=== PATIENT | female | born 1945 | race Caucasian/White ===

== ENCOUNTER 2016-07-03 08:59 | Emergency (ER) | payer BC ==
[~2016-07-03] VITALS: Ht 167.6 cm; Wt 61.0 kg
[~2016-07-03 08:59] MED LIST: ALBU18HF INH; ALBU8.5H3 INH; AMOX-291 PO; AZIT500T4 PO; BENZ200C40 PO; BUDE0.5A INH; DOXY100T PO; FAMO-79 PO; FLUT1DIS3 INH; GUAI600T22 PO; HYDR-3138 PO; HYDR473S55 PO; IBUP200C8 PO; IPRA3AMP NEB; LEVO750T26 PO; METH4TAB2 PO; NAPR500T PO; OTC VITAMINS; PRED20TA PO; TIOT18CA INH; TRAM100T13 PO
[2016-07-03 09:30] VITALS: BP 122/60
[2016-07-03] MEDS ORDERED: OXYcodone/APAP 5/325MG TABLET ONE (09:43)
[2016-07-03] MEDS ORDERED: OXYcodone/APAP 5/325MG TABLET PO ONE (10:00)
[2016-07-04] MEDS ORDERED: GUAI1TAB21 PO (16:27)
[2016-07-04] MEDS ORDERED: OXYC-302 PO (16:27)
== END 2016-07-03 10:43 | disposition home or self-care (01) ==
LOC: ED 10:38
DX: M19.012 Primary osteoarthritis, left shoulder (principal); J44.9 Chronic obstructive pulmonary disease, unspecified; J45.909 Unspecified asthma, uncomplicated; Z88.1 Allergy status to other antibiotic agents; Z88.8 Allergy status to other drugs, medicaments and biological substances; Z87.891 Personal history of nicotine dependence
CPT/HCPCS: 71020; 93005; 99284

== ENCOUNTER 2016-07-04 16:00 | Emergency (ER) | payer BC ==
[~2016-07-04] VITALS: Ht 167.6 cm; Wt 65.2 kg
[2016-07-04] MEDS ORDERED: GUAI1TAB21 PO (16:27)
[2016-07-04] MEDS ORDERED: OXYC-302 PO (16:27)
[2016-07-04] MEDS ORDERED: SODIUM CHLORIDE 0.9% 1,000 ML IV ONE (16:49)
[2016-07-04] MEDS ORDERED: ALBUTEROL/IPRATROPIUM 2.5MG/0.5MG, 3 ML NPPB ONE (17:00)
[2016-07-04] MEDS ORDERED: CEFTRIAXONE PMX 1GM/50ML 50 ML IVPB ONE (17:00)
[2016-07-04] MEDS ORDERED: CEFTRIAXONE PMX 1GM/50ML 50 ML ONE (17:20)
[2016-07-04 17:31] LABS: HEMOGLOBIN 14.6 g/dL (11.7-16.4)
[2016-07-04 17:40] LABS: BLOOD UREA NITROGEN 18 mg/dL (7-18)
[2016-07-04 18:33] VITALS: BP 124/63
== END 2016-07-04 18:44 | disposition home or self-care (01) ==
LOC: ED 18:15
DX: J01.00 Acute maxillary sinusitis, unspecified (principal); J44.1 Chronic obstructive pulmonary disease with (acute) exacerbation; K21.9 Gastro-esophageal reflux disease without esophagitis; M19.90 Unspecified osteoarthritis, unspecified site; J45.909 Unspecified asthma, uncomplicated; Z87.01 Personal history of pneumonia (recurrent); Z88.1 Allergy status to other antibiotic agents; Z87.891 Personal history of nicotine dependence; Z88.8 Allergy status to other drugs, medicaments and biological substances
CPT/HCPCS: 36415; 71010; 80048; 82040; 85025; 93005; 94640; 96365; 99285; J0696; J7030; J7512; J7620

== ENCOUNTER 2016-07-18 11:35 | Emergency (ER) | payer BC ==
[~2016-07-18] VITALS: Ht 170.2 cm; Wt 64.8 kg
[~2016-07-18 11:35] MED LIST changes: +GUAI1TAB21 PO; +OXYC-302 PO
[2016-07-18 11:48] VITALS: BP 117/77
== END 2016-07-18 12:35 | disposition home or self-care (01) ==
LOC: ED 12:29
DX: M19.012 Primary osteoarthritis, left shoulder (principal); M79.622 Pain in left upper arm; K21.9 Gastro-esophageal reflux disease without esophagitis; J44.9 Chronic obstructive pulmonary disease, unspecified; Z87.01 Personal history of pneumonia (recurrent); Z98.890 Other specified postprocedural states
CPT/HCPCS: 99283

== ENCOUNTER 2016-07-20 10:58 | Inpatient (IN) | payer MEDICARE, BC ==
[~2016-07-20] VITALS: Ht 170.2 cm; Wt 70.0 kg
[2016-07-20] MEDS ORDERED: ASPIRIN 81 MG TABLET CHEW PO ONE (12:30)
[2016-07-20] MEDS ORDERED: ALBUTEROL/IPRATROPIUM 2.5MG/0.5MG, 3 ML NPPB ONE (12:30)
[2016-07-20] MEDS ORDERED: SODIUM CHLORIDE FLUSH 10ML SYR IVF ONE (12:30)
[2016-07-20] MEDS ORDERED: ALBUTEROL/IPRATROPIUM 2.5MG/0.5MG, 3 ML ONE ×2 (12:36→14:41)
[2016-07-20] MEDS ORDERED: ASPIRIN 81 MG TABLET CHEW ONE (12:48)
[2016-07-20] MEDS ORDERED: CEFTRIAXONE PMX 1GM/50ML 50 ML IVPB ONE (13:00)
[2016-07-20] MEDS ORDERED: AZITHROMYCIN 500 MG in SODIUM CHLORIDE 0.9% 250 ML IVPB ONE (13:00)
[2016-07-20] MEDS ORDERED: CEFTRIAXONE PMX 1GM/50ML 50 ML ONE (13:03)
[2016-07-20 13:36] LABS: BLOOD UREA NITROGEN 16 mg/dL (7-18)
[2016-07-20 13:42] LABS: ASPARTATE AMINO TRANSFERASE 14 U/L (15-37); IS PT STATUS REG ER OR PRE ER? YES
[2016-07-20] MEDS ORDERED: SODIUM CHLORIDE FLUSH 10ML SYR IVF PRN (14:00)
[2016-07-20] MEDS ORDERED: ALBUTEROL/IPRATROPIUM 2.5MG/0.5MG, 3 ML NEB ONE (15:00)
[2016-07-20] MEDS ORDERED: PSEU30TA PO (15:05)
[2016-07-20 15:54] VITALS: BP 112/69
[2016-07-20] MEDS ORDERED: HYDROcodone/APAP 5/325 TABLET PO PRN (17:00)
[2016-07-20] MEDS ORDERED: ONDANSETRON ODT 4 MG PO PRN (17:00)
[2016-07-20] MEDS ORDERED: DOCUSATE 100 MG CAPSULE PO PRN (17:00)
[2016-07-20] MEDS ORDERED: ONDANSETRON 2MG/ML, 2ML IVP PRN (17:00)
[2016-07-20] MEDS ORDERED: ACETAMINOPHEN 325 MG TABLET PO PRN (17:00)
[2016-07-20] MEDS ORDERED: GUAIFENESIN/DM 200-20MG, 10ML UDC PO PRN (17:00)
[2016-07-20] MEDS ORDERED: TRAZODONE 50MG TABLET PO PRN (17:00)
[2016-07-20] MEDS: SODIUM CHLORIDE 0.9% 1,000 ML IV SCH (17:30)
[2016-07-20] MEDS: ENOXAPARIN 40 MG/0.4 ML SQ SCH ×2 (17:30→18:16)
[2016-07-20] MEDS ORDERED: IPRATROPIUM 0.5 MG/2.5 ML INHA HHN SCH (17:30)
[2016-07-20] MEDS: OXYcodone/APAP 5/325MG TABLET PO SCH (18:17)
[2016-07-20] MEDS: CEFTRIAXONE PMX 1GM/50ML 50 ML IV SCH (18:17)
[2016-07-20] MEDS: ALBUTEROL/IPRATROPIUM 2.5MG/0.5MG, 3 ML NPPB SCH (18:29)
[2016-07-20] MEDS ORDERED: [UNRECOGNIZED DRUG - OTHER] PO PRN (20:00)
[2016-07-20] MEDS ORDERED: MAGNESIUM OXIDE 400 MG TABLET PO ONE (20:30)
[2016-07-20 20:40] VITALS: BP 128/70
[2016-07-20] MEDS ORDERED: TIOTROPIUM BROMIDE INH SCH (21:00)
[2016-07-20] MEDS ORDERED: TEMPLATE NON-FORMULARY MED. (Albuterol Sulfate (Ventolin Hfa) 2 PUFF) INH SCH (21:00)
[2016-07-20] MEDS: AZITHROMYCIN 500 MG in SODIUM CHLORIDE 0.9% 250 ML IV SCH (22:01)
[2016-07-20] MEDS: SODIUM CHLORIDE FLUSH 10ML SYR IVF SCH (22:02)
[2016-07-20] MEDS: GUAIFENESIN ER 600 MG TABLET PO SCH (22:02)
[2016-07-21] MEDS: OXYcodone/APAP 5/325MG TABLET PO SCH ×4 (00:05→17:19)
[2016-07-21] MEDS: ALBUTEROL SULFATE 2.5 MG/3 ML HHN PRN (00:30)
[2016-07-21 02:17] VITALS: BP 112/60
[2016-07-21] MEDS: SODIUM CHLORIDE 0.9% 1,000 ML IV SCH (03:46)
[2016-07-21 06:17] LABS: BLOOD UREA NITROGEN 20 mg/dL (7-18)
[2016-07-21 06:56] VITALS: BP 120/70
[2016-07-21] MEDS: ALBUTEROL/IPRATROPIUM 2.5MG/0.5MG, 3 ML NPPB SCH ×5 (06:57→23:45)
[2016-07-21] MEDS: SODIUM CHLORIDE FLUSH 10ML SYR IVF SCH ×2 (08:26→20:34)
[2016-07-21] MEDS: GUAIFENESIN ER 600 MG TABLET PO SCH ×2 (08:26→20:34)
[2016-07-21] MEDS: PSEUDOEPHEDRINE 30 MG TABLET PO SCH (08:27)
[2016-07-21 12:24] VITALS: BP 108/58
[2016-07-21] MEDS: CEFTRIAXONE PMX 1GM/50ML 50 ML IV SCH (17:19)
[2016-07-21] MEDS: ENOXAPARIN 40 MG/0.4 ML SQ SCH ×2 (17:19→17:20)
[2016-07-21] MEDS: AZITHROMYCIN 500 MG in SODIUM CHLORIDE 0.9% 250 ML IV SCH (18:43)
[2016-07-21 19:10] VITALS: BP 125/70
[2016-07-21] MEDS: CALCIUM CARBONATE 500 MG TAB.CHEW PO PRN (20:34)
[2016-07-22 01:15] VITALS: BP 110/68
[2016-07-22] MEDS: ALBUTEROL/IPRATROPIUM 2.5MG/0.5MG, 3 ML NPPB SCH ×4 (04:59→19:33)
[2016-07-22] MEDS: OXYcodone/APAP 5/325MG TABLET PO SCH ×4 (05:34→17:35)
[2016-07-22 06:54] VITALS: BP 117/68
[2016-07-22] MEDS: GUAIFENESIN ER 600 MG TABLET PO SCH ×2 (08:58→20:46)
[2016-07-22] MEDS: PSEUDOEPHEDRINE 30 MG TABLET PO SCH (08:58)
[2016-07-22] MEDS: SODIUM CHLORIDE FLUSH 10ML SYR IVF SCH ×2 (08:59→20:46)
[2016-07-22] MEDS: SODIUM CHLORIDE 0.9% 1,000 ML IV SCH ×2 (13:00→23:00)
[2016-07-22 14:08] VITALS: BP 117/68
[2016-07-22 14:27] VITALS: BP 124/71
[2016-07-22] MEDS: methylPREDNISolone SOD SUCC 125 MG/2 ML IVPush SCH (17:34)
[2016-07-22] MEDS: CEFTRIAXONE PMX 1GM/50ML 50 ML IV SCH (17:35)
[2016-07-22] MEDS: ENOXAPARIN 40 MG/0.4 ML SQ SCH (17:35)
[2016-07-22] MEDS: AZITHROMYCIN 500 MG in SODIUM CHLORIDE 0.9% 250 ML IV SCH (19:20)
[2016-07-22 20:25] VITALS: BP 127/73
[2016-07-23] MEDS: SODIUM CHLORIDE 0.9% 1,000 ML IV SCH ×2 (00:48→14:55)
[2016-07-23] MEDS: ALBUTEROL/IPRATROPIUM 2.5MG/0.5MG, 3 ML NPPB SCH ×6 (01:19→22:35)
[2016-07-23 02:02] VITALS: BP 150/79
[2016-07-23] MEDS: methylPREDNISolone SOD SUCC 125 MG/2 ML IVPush SCH ×2 (02:46→14:55)
[2016-07-23] MEDS: OXYcodone/APAP 5/325MG TABLET PO SCH ×4 (06:00→18:30)
[2016-07-23 07:40] VITALS: BP 131/86
[2016-07-23] MEDS: SODIUM CHLORIDE FLUSH 10ML SYR IVF SCH ×2 (08:00→21:00)
[2016-07-23] MEDS ORDERED: SINCALIDE (KINEVAC) 5 MCG ONE (08:51)
[2016-07-23] MEDS: GUAIFENESIN ER 600 MG TABLET PO SCH ×2 (09:00→21:00)
[2016-07-23] MEDS: PSEUDOEPHEDRINE 30 MG TABLET PO SCH (09:00)
[2016-07-23 13:30] VITALS: BP 67/86
[2016-07-23] MEDS: ENOXAPARIN 40 MG/0.4 ML SQ SCH ×2 (17:30→18:30)
[2016-07-23] MEDS ORDERED: CETIRIZINE 10 MG TABLET PO PRN (18:00)
[2016-07-23] MEDS: CEFTRIAXONE PMX 1GM/50ML 50 ML IV SCH (18:30)
[2016-07-23] MEDS: AZITHROMYCIN 500 MG in SODIUM CHLORIDE 0.9% 250 ML IV SCH (19:33)
[2016-07-23 20:36] VITALS: BP 125/63
[2016-07-24] MEDS: ALBUTEROL SULFATE 2.5 MG/3 ML HHN PRN (02:28)
[2016-07-24] MEDS: methylPREDNISolone SOD SUCC 125 MG/2 ML IVPush SCH ×2 (02:39→15:44)
[2016-07-24] MEDS: OXYcodone/APAP 5/325MG TABLET PO SCH ×4 (02:39→18:09)
[2016-07-24 02:45] VITALS: BP 148/77
[2016-07-24] MEDS: SODIUM CHLORIDE 0.9% 1,000 ML IV SCH ×2 (05:24→18:09)
[2016-07-24] MEDS: CALCIUM CARBONATE 500 MG TAB.CHEW PO PRN (05:35)
[2016-07-24 07:00] VITALS: BP 133/76
[2016-07-24] MEDS: ALBUTEROL/IPRATROPIUM 2.5MG/0.5MG, 3 ML NPPB SCH ×4 (07:00→20:00)
[2016-07-24] MEDS: GUAIFENESIN ER 600 MG TABLET PO SCH ×2 (10:49→20:11)
[2016-07-24] MEDS: PSEUDOEPHEDRINE 30 MG TABLET PO SCH (10:49)
[2016-07-24] MEDS: SODIUM CHLORIDE FLUSH 10ML SYR IVF SCH ×2 (10:49→20:11)
[2016-07-24 12:57] VITALS: BP 150/68
[2016-07-24] MEDS: ENOXAPARIN 40 MG/0.4 ML SQ SCH (15:47)
[2016-07-24] MEDS: CEFTRIAXONE PMX 1GM/50ML 50 ML IV SCH (18:09)
[2016-07-24 19:18] VITALS: BP 158/78
[2016-07-24] MEDS: AZITHROMYCIN 500 MG in SODIUM CHLORIDE 0.9% 250 ML IV SCH (20:11)
[2016-07-25 02:27] VITALS: BP 166/91
[2016-07-25] MEDS: methylPREDNISolone SOD SUCC 125 MG/2 ML IVPush SCH (03:42)
[2016-07-25] MEDS: OXYcodone/APAP 5/325MG TABLET PO SCH ×2 (05:40)
[2016-07-25] MEDS: ALBUTEROL/IPRATROPIUM 2.5MG/0.5MG, 3 ML NPPB SCH (06:13)
[2016-07-25 06:40] VITALS: BP 124/67
[2016-07-25] MEDS: GUAIFENESIN ER 600 MG TABLET PO SCH (08:29)
[2016-07-25] MEDS ORDERED: AZIT500T4 PO (08:40)
[2016-07-25] MEDS ORDERED: IPRA4AER INH (08:42)
[2016-07-25] MEDS ORDERED: PRED20TA PO (08:43)
[2016-07-25] MEDS: PSEUDOEPHEDRINE 30 MG TABLET PO SCH (09:00)
[2016-07-25] MEDS: SODIUM CHLORIDE FLUSH 10ML SYR IVF SCH (09:00)
== END 2016-07-25 12:04 | disposition home or self-care (01) | DRG 190 ==
LOC: ED 13:57 → EDIP 13:58 → ED 14:06 → 4EST 15:45
PROVIDERS: ADMIT Internal Medicine; ATTEND Family Medicine
DX: J44.0 Chronic obstructive pulmonary disease with (acute) lower respiratory infection (principal); J18.9 Pneumonia, unspecified organism; J44.1 Chronic obstructive pulmonary disease with (acute) exacerbation; J45.909 Unspecified asthma, uncomplicated; M19.012 Primary osteoarthritis, left shoulder; M48.02 Spinal stenosis, cervical region; M79.602 Pain in left arm; Z96.89 Presence of other specified functional implants; R00.0 Tachycardia, unspecified; Z88.2 Allergy status to sulfonamides; Z88.8 Allergy status to other drugs, medicaments and biological substances; Z87.891 Personal history of nicotine dependence; Z79.82 Long term (current) use of aspirin; Z87.01 Personal history of pneumonia (recurrent)
CPT/HCPCS: 36415; 71010; 71020; 72050; 76700; 78227; 80048; 80053; 82247; 82248; 83605; 83880; 84145; 84484; 85025; 85379; 87040; 93005; 94640; 96365; 96367; J0456; J0696; J1650; J7613; J7620; A9537; C9898; J2805; J2930; J7030; J7050; J7512

== ENCOUNTER → 2016-08-17 | Outpatient (CLI) | payer BC, MEDICARE ==
[~2016-08-17] MED LIST changes: -AZIT500T4 PO; +AZIT500T77 PO; +IPRA4AER INH; +PSEU30TA PO
== END | disposition home or self-care (01) ==
LOC: CFH 08:23
PROVIDERS: ATTEND Registered Nurse
DX: R10.11 Right upper quadrant pain (principal)
CPT/HCPCS: 76700

== ENCOUNTER 2016-08-25 10:38 | Inpatient (IN) | payer MEDICARE, BC ==
[~2016-08-25] VITALS: Ht 167.6 cm; Wt 68.4 kg
[2016-08-25] MEDS ORDERED: ALBUTEROL/IPRATROPIUM 2.5MG/0.5MG, 3 ML ONE ×2 (11:01→13:17)
[2016-08-25] MEDS ORDERED: SODIUM CHLORIDE 0.9% 1,000 ML IV ONE (11:28)
[2016-08-25] MEDS ORDERED: methylPREDNISolone SOD SUCC 125 MG/2 ML IVP ONE (11:30)
[2016-08-25] MEDS ORDERED: SODIUM CHLORIDE FLUSH 10ML SYR IVF ONE (11:30)
[2016-08-25] MEDS ORDERED: methylPREDNISolone SOD SUCC 125 MG/2 ML ONE (11:32)
[2016-08-25 12:26] LABS: ASPARTATE AMINO TRANSFERASE 16 U/L (15-37); BLOOD UREA NITROGEN 11 mg/dL (7-18)
[2016-08-25 12:34] LABS: IS PT STATUS REG ER OR PRE ER? YES
[2016-08-25] MEDS ORDERED: LORazepam 2 MG/ML, 1ML ONE (13:16)
[2016-08-25] MEDS ORDERED: KETAMINE 10 MG/ML, 20ML ONE (13:26)
[2016-08-25] MEDS ORDERED: ALBUTEROL 0.5%, 20ML ONE (13:28)
[2016-08-25] MEDS: ALBUTEROL/IPRATROPIUM 2.5MG/0.5MG, 3 ML NPPB SCH (13:47)
[2016-08-25] MEDS ORDERED: KETAMINE 100 MG/ML, 5ML IV ONE (14:00)
[2016-08-25] MEDS ORDERED: MAGNESIUM SULFATE PMX 2GM/50ML 50 ML IV ONE (14:00)
[2016-08-25] MEDS ORDERED: ALBUTEROL 0.5%, 20ML NPPBCONT SCH (14:00)
[2016-08-25] MEDS ORDERED: SODIUM CHLORIDE 0.9%, 500ML IVBOLUS ONE (14:00)
[2016-08-25] MEDS ORDERED: LORazepam 2 MG/ML, 1ML IVPush ONE (14:00)
[2016-08-25 14:06] LABS: ABG COLLECTION SITE RIGHT BRACHIAL
[2016-08-25 14:08] LABS: FIO2 40 %
[2016-08-25] MEDS ORDERED: ROCURONIUM 10 MG/ML IVPush ONE (14:30)
[2016-08-25] MEDS ORDERED: ETOMIDATE 20 MG/10 ML IVPush ONE (14:30)
[2016-08-25] MEDS ORDERED: PROPOFOL 100 ML IV PRN (14:30)
[2016-08-25] MEDS ORDERED: LIDOCAINE-MPF 1%, 2ML ENDO PRN (15:30)
[2016-08-25] MEDS: ALBUTEROL/IPRATROPIUM 2.5MG/0.5MG, 3 ML INLINE SCH ×3 (15:30→21:53)
[2016-08-25] MEDS ORDERED: PHARMACY MAY ADJ FOR RENAL FX MC SCH (15:30)
[2016-08-25] MEDS ORDERED: BISACODYL 10 MG SUPP PR PRN ×2 (15:30→17:00)
[2016-08-25] MEDS ORDERED: SENNOSIDES 8.8 MG/5 ML ORAL SOL NG PRN (15:30)
[2016-08-25] MEDS ORDERED: LACTULOSE 20 GM/30 ML UDC NG PRN (15:30)
[2016-08-25] MEDS: SODIUM CHLORIDE 0.9% 1,000 ML IV SCH (15:32)
[2016-08-25 16:00] VITALS: BP 124/72
[2016-08-25] MEDS ORDERED: PROPOFOL 10 MG/ML, 100ML IV ONE (16:16)
[2016-08-25] MEDS ORDERED: ROCURONIUM 10 MG/ML ONE (16:16)
[2016-08-25] MEDS ORDERED: ETOMIDATE 20 MG/10 ML ONE (16:16)
[2016-08-25] MEDS: HEPARIN 5,000 UNITS/ML, 1ML SQ SCH ×2 (16:53→23:10)
[2016-08-25] MEDS: methylPREDNISolone SOD SUCC 125 MG/2 ML IVPush SCH ×2 (16:53→20:51)
[2016-08-25] MEDS ORDERED: DOCUSATE 100 MG CAPSULE PO PRN (17:00)
[2016-08-25] MEDS ORDERED: POLYETHYLENE GLYCOL 17 GM PACKET PO PRN (17:00)
[2016-08-25] MEDS: morphine SULFATE 10 MG/ML, 1ML IVPush PRN ×2 (17:41→23:10)
[2016-08-25 18:40] LABS: IS PT STATUS REG ER OR PRE ER? NO
[2016-08-25] MEDS: ASPIRIN 81 MG TABLET CHEW PO SCH (20:51)
[2016-08-25] MEDS: FAMOTIDINE 20 MG/2 ML IVPush SCH (20:51)
[2016-08-26 01:15] LABS: IS PT STATUS REG ER OR PRE ER? NO
[2016-08-26] MEDS: SODIUM CHLORIDE 0.9% 1,000 ML IV SCH ×2 (01:30→19:34)
[2016-08-26] MEDS: PROPOFOL 100 ML IV PRN ×3 (01:52→19:34)
[2016-08-26] MEDS: ALBUTEROL/IPRATROPIUM 2.5MG/0.5MG, 3 ML INLINE SCH ×6 (02:00→21:50)
[2016-08-26 04:44] LABS: ABG COLLECTION SITE RIGHT RADIAL; COLLATERAL CIRCULATION TESTING NORMAL
[2016-08-26] MEDS: methylPREDNISolone SOD SUCC 125 MG/2 ML IVPush SCH ×4 (04:45→19:34)
[2016-08-26 04:53] LABS: BLOOD UREA NITROGEN 15 mg/dL (7-18)
[2016-08-26 04:57] LABS: ASPARTATE AMINO TRANSFERASE 31 U/L (15-37)
[2016-08-26 05:35] VITALS: BP 106/96
[2016-08-26] MEDS: morphine SULFATE 10 MG/ML, 1ML IVPush PRN ×2 (09:23→20:14)
[2016-08-26] MEDS: ASPIRIN 81 MG TABLET CHEW PO SCH (09:24)
[2016-08-26] MEDS: HEPARIN 5,000 UNITS/ML, 1ML SQ SCH ×3 (09:24→23:16)
[2016-08-26] MEDS: SENNA/DOCUSATE TABLET NG PRN (09:24)
[2016-08-26] MEDS: FAMOTIDINE 20 MG/2 ML IVPush SCH ×2 (09:24→19:35)
[2016-08-26 12:16] LABS: PATH.CAST-FLAG NOT PRESENT; SPERM-FLAG NOT PRESENT; SRC-FLAG NOT PRESENT; XTAL-FLAG NOT PRESENT; YLC-FLAG NOT PRESENT
[2016-08-27] MEDS: morphine SULFATE 10 MG/ML, 1ML IVPush PRN ×2 (00:01→20:27)
[2016-08-27] MEDS: ALBUTEROL/IPRATROPIUM 2.5MG/0.5MG, 3 ML INLINE SCH ×6 (01:55→22:00)
[2016-08-27] MEDS ORDERED: FUROSEMIDE 20 MG/2 ML IV ONE (02:00)
[2016-08-27] MEDS: methylPREDNISolone SOD SUCC 125 MG/2 ML IVPush SCH ×4 (03:19→20:27)
[2016-08-27 04:18] LABS: ABG COLLECTION SITE LEFT RADIAL; COLLATERAL CIRCULATION TESTING NORMAL
[2016-08-27 04:28] VITALS: BP 100/52
[2016-08-27 04:30] LABS: BLOOD UREA NITROGEN 25 mg/dL (7-18)
[2016-08-27] MEDS: FAMOTIDINE 20 MG/2 ML IVPush SCH ×2 (08:37→20:27)
[2016-08-27] MEDS: ASPIRIN 81 MG TABLET CHEW PO SCH (08:37)
[2016-08-27] MEDS: HEPARIN 5,000 UNITS/ML, 1ML SQ SCH ×2 (08:37→18:04)
[2016-08-27] MEDS: SODIUM CHLORIDE 0.9% 1,000 ML IV SCH (12:09)
[2016-08-27] MEDS: LISINOPRIL 5 MG TABLET PO SCH (12:10)
[2016-08-27] MEDS: PROPOFOL 100 ML IV PRN (18:05)
[2016-08-28] MEDS: HEPARIN 5,000 UNITS/ML, 1ML SQ SCH ×4 (01:02→23:30)
[2016-08-28] MEDS: morphine SULFATE 10 MG/ML, 1ML IVPush PRN (01:19)
[2016-08-28] MEDS: ALBUTEROL/IPRATROPIUM 2.5MG/0.5MG, 3 ML INLINE SCH ×3 (02:00→10:51)
[2016-08-28] MEDS: methylPREDNISolone SOD SUCC 125 MG/2 ML IVPush SCH ×4 (04:00→21:38)
[2016-08-28 04:27] LABS: ABG COLLECTION SITE RIGHT BRACHIAL
[2016-08-28 04:50] LABS: BLOOD UREA NITROGEN 30 mg/dL (7-18)
[2016-08-28 05:28] VITALS: BP 106/79
[2016-08-28] MEDS ORDERED: FUROSEMIDE 20 MG/2 ML IV ONE (09:00)
[2016-08-28] MEDS: FAMOTIDINE 20 MG/2 ML IVPush SCH ×2 (09:57→21:27)
[2016-08-28] MEDS: ASPIRIN 81 MG TABLET CHEW PO SCH (09:57)
[2016-08-28] MEDS: CARVEDILOL 3.125 MG TABLET PO SCH ×2 (09:58→18:40)
[2016-08-28] MEDS: LISINOPRIL 5 MG TABLET PO SCH (09:58)
[2016-08-28] MEDS: INSULIN ASPART 100 UNITS/ML, PEN SQ-INSULIN SCH ×4 (10:31→21:28)
[2016-08-28] MEDS: SODIUM CHLORIDE 0.9% 1,000 ML IV SCH (11:04)
[2016-08-28] MEDS: ALBUTEROL/IPRATROPIUM 2.5MG/0.5MG, 3 ML NPPB SCH ×4 (15:00→23:54)
[2016-08-29] MEDS: ALBUTEROL/IPRATROPIUM 2.5MG/0.5MG, 3 ML NPPB SCH ×6 (02:52→19:19)
[2016-08-29] MEDS: methylPREDNISolone SOD SUCC 125 MG/2 ML IVPush SCH ×4 (03:28→21:05)
[2016-08-29 03:48] LABS: BLOOD UREA NITROGEN 31 mg/dL (7-18)
[2016-08-29 04:00] VITALS: BP 119/96
[2016-08-29 04:57] LABS: ABG COLLECTION SITE RIGHT RADIAL; COLLATERAL CIRCULATION TESTING NORMAL
[2016-08-29] MEDS: CARVEDILOL 3.125 MG TABLET PO SCH ×2 (05:33→16:58)
[2016-08-29] MEDS: INSULIN ASPART 100 UNITS/ML, PEN SQ-INSULIN SCH ×4 (07:00→21:00)
[2016-08-29] MEDS: FAMOTIDINE 20 MG/2 ML IVPush SCH ×2 (08:17→21:05)
[2016-08-29] MEDS: HEPARIN 5,000 UNITS/ML, 1ML SQ SCH ×3 (08:17→23:35)
[2016-08-29] MEDS: ASPIRIN 81 MG TABLET CHEW PO SCH (08:18)
[2016-08-29] MEDS: LISINOPRIL 5 MG TABLET PO SCH (08:19)
[2016-08-29] MEDS ORDERED: FUROSEMIDE 20 MG/2 ML ONE (08:47)
[2016-08-29] MEDS ORDERED: SODIUM CHLORIDE 0.9% 1,000 ML IV SCH ×2 (09:00)
[2016-08-29] MEDS ORDERED: FUROSEMIDE 20 MG/2 ML IV ONE (10:00)
[2016-08-29] MEDS: SENNA/DOCUSATE TABLET NG PRN (16:58)
[2016-08-29] MEDS: ALBUTEROL/IPRATROPIUM 2.5MG/0.5MG, 3 ML NPPB PRN (21:39)
[2016-08-30] MEDS: ALBUTEROL/IPRATROPIUM 2.5MG/0.5MG, 3 ML NPPB PRN ×2 (00:05→03:00)
[2016-08-30] MEDS: methylPREDNISolone SOD SUCC 125 MG/2 ML IVPush SCH ×4 (03:04→22:33)
[2016-08-30 04:00] VITALS: BP 134/75
[2016-08-30] MEDS: CARVEDILOL 3.125 MG TABLET PO SCH ×2 (06:12→17:17)
[2016-08-30] MEDS: ALBUTEROL/IPRATROPIUM 2.5MG/0.5MG, 3 ML NPPB SCH ×5 (07:00→23:00)
[2016-08-30] MEDS: FAMOTIDINE 20 MG/2 ML IVPush SCH (07:14)
[2016-08-30] MEDS: HEPARIN 5,000 UNITS/ML, 1ML SQ SCH ×3 (07:14→22:33)
[2016-08-30] MEDS: ASPIRIN 81 MG TABLET CHEW PO SCH (07:15)
[2016-08-30] MEDS: LISINOPRIL 5 MG TABLET PO SCH (07:15)
[2016-08-30] MEDS: INSULIN ASPART 100 UNITS/ML, PEN SQ-INSULIN SCH ×4 (07:22→20:22)
[2016-08-30] MEDS: SENNA/DOCUSATE TABLET NG PRN (07:22)
[2016-08-30] MEDS ORDERED: GUAIFENESIN 100 MG/5 ML, 10ML UDC PO PRN (08:30)
[2016-08-30 13:10] VITALS: BP 121/72
[2016-08-30 17:18] VITALS: BP 120/70
[2016-08-30 19:38] VITALS: BP 126/74
[2016-08-31] MEDS: ALBUTEROL/IPRATROPIUM 2.5MG/0.5MG, 3 ML NPPB SCH ×6 (02:40→22:45)
[2016-08-31] MEDS: methylPREDNISolone SOD SUCC 125 MG/2 ML IVPush SCH ×2 (02:40→08:21)
[2016-08-31 03:01] VITALS: BP 145/66
[2016-08-31] MEDS: CARVEDILOL 3.125 MG TABLET PO SCH ×2 (05:50→17:52)
[2016-08-31 05:53] VITALS: BP 104/59
[2016-08-31 08:15] VITALS: BP 120/64
[2016-08-31] MEDS: LISINOPRIL 5 MG TABLET PO SCH (08:20)
[2016-08-31] MEDS: ASPIRIN 81 MG TABLET CHEW PO SCH (08:20)
[2016-08-31] MEDS: HEPARIN 5,000 UNITS/ML, 1ML SQ SCH ×2 (08:21→15:42)
[2016-08-31] MEDS: INSULIN ASPART 100 UNITS/ML, PEN SQ-INSULIN SCH ×4 (08:22→21:00)
[2016-08-31 13:32] VITALS: BP 125/60
[2016-08-31] MEDS: methylPREDNISolone SOD SUCC 40 MG/ML IVPush SCH (17:53)
[2016-08-31 19:32] VITALS: BP 118/56
[2016-09-01] MEDS: methylPREDNISolone SOD SUCC 40 MG/ML IVPush SCH ×3 (01:04→16:40)
[2016-09-01] MEDS: HEPARIN 5,000 UNITS/ML, 1ML SQ SCH ×3 (01:05→16:37)
[2016-09-01 01:08] VITALS: BP 123/68
[2016-09-01] MEDS: CARVEDILOL 3.125 MG TABLET PO SCH ×2 (05:02→16:40)
[2016-09-01] MEDS: ALBUTEROL/IPRATROPIUM 2.5MG/0.5MG, 3 ML NPPB SCH ×4 (05:15→14:42)
[2016-09-01] MEDS: INSULIN ASPART 100 UNITS/ML, PEN SQ-INSULIN SCH ×3 (07:00→16:41)
[2016-09-01 07:46] VITALS: BP 120/70
[2016-09-01] MEDS ORDERED: REGADENOSON 0.4 MG/5 ML SYRINGE ONE (08:02)
[2016-09-01] MEDS: ASPIRIN 81 MG TABLET CHEW PO SCH (10:33)
[2016-09-01] MEDS: LISINOPRIL 5 MG TABLET PO SCH (10:33)
[2016-09-01] MEDS: ALBUTEROL/IPRATROPIUM 2.5MG/0.5MG, 3 ML NPPB PRN (12:28)
[2016-09-01 14:00] VITALS: BP 112/68
[2016-09-01] MEDS ORDERED: PRED5TAB PO (15:41)
[2016-09-01] MEDS ORDERED: ASPI-515 PO (15:41)
[2016-09-01] MEDS ORDERED: CARV3.1212 PO (15:41)
[2016-09-01] MEDS ORDERED: LORA-445 PO ×2 (15:41→15:42)
[2016-09-01] MEDS ORDERED: LISI5TAB7 PO (15:41)
[2016-09-01] MEDS ORDERED: ATOR20TA9 PO (15:41)
[2016-09-01] MEDS ORDERED: ATORVASTATIN 20 MG TABLET PO SCH (21:00)
== END 2016-09-01 19:58 | disposition home health service (06) | DRG 208 ==
LOC: ED 13:50 → CCU 13:53 → ED 14:06 → 3NW 08-30 10:44
PROVIDERS: ADMIT Hospitalist; ATTEND Family Medicine
PROC: 0BH17EZ Insertion of Endotracheal Airway into Trachea, Via Natural or Artificial Opening (ICD-10-PCS; principal; 2016-08-25)
PROC: 5A1945Z Respiratory Ventilation, 24-96 Consecutive Hours (ICD-10-PCS; 2016-08-25)
PROC: 02HV33Z Insertion of Infusion Device into Superior Vena Cava, Percutaneous Approach (ICD-10-PCS; 2016-08-25)
PROC: 0T9B70Z Drainage of Bladder with Drainage Device, Via Natural or Artificial Opening (ICD-10-PCS; 2016-08-26)
PROC: 5A09357 Assistance with Respiratory Ventilation, Less than 24 Consecutive Hours, Continuous Positive Airway Pressure (ICD-10-PCS; 2016-08-26)
DX: J96.21 Acute and chronic respiratory failure with hypoxia (principal); I21.4 Non-ST elevation (NSTEMI) myocardial infarction; J44.1 Chronic obstructive pulmonary disease with (acute) exacerbation; E87.0 Hyperosmolality and hypernatremia; E87.2 Acidosis; Z99.11 Dependence on respirator [ventilator] status; I42.9 Cardiomyopathy, unspecified; F41.1 Generalized anxiety disorder; J96.22 Acute and chronic respiratory failure with hypercapnia; K21.9 Gastro-esophageal reflux disease without esophagitis; Z88.2 Allergy status to sulfonamides; Z88.1 Allergy status to other antibiotic agents; Z87.891 Personal history of nicotine dependence; Z87.01 Personal history of pneumonia (recurrent); D64.9 Anemia, unspecified; T38.0X5A Adverse effect of glucocorticoids and synthetic analogues, initial encounter
CPT/HCPCS: 31500; 36415; 36556; 36600; 51702; 71010; 78452; 80048; 80053; 81001; 82803; 82962; 83036; 83605; 83735; 83880; 84478; 84484; 85025; 85610; 85730; 87040; 87070; 87081; 87205; 93005; 93017; 93306; 94002; 94003; 94150; 94640; 94644; 94660; 96361; 96374; 96375; J1644; J1815; J2704; J2785; J7620; A9502; C9898; J1940; J2060; J2270; J2920; J2930; J3475; J7030; J7040; S0028

== ENCOUNTER 2018-04-26 00:41 | Emergency (ER) | payer BC, MEDICARE ==
[~2018-04-26] VITALS: Ht 167.6 cm; Wt 65.8 kg
[~2018-04-26 00:41] MED LIST changes: -ALBU8.5H3 INH; +ALBU8.5H8 INH; +ASPI-515 PO; +ATOR20TA37 PO; +AZIT500T5 PO; -AZIT500T77 PO; -BENZ200C40 PO; +BENZ200C48 PO; +CARV3.1212 PO; -GUAI600T22 PO; +GUAI600T31 PO; -HYDR-3138 PO; +HYDR-3237 PO; -IPRA3AMP NEB; +IPRA3AMP30 NEB; +LISI5TAB7 PO; +LORA-445 PO; +NAPR-856 PO; -NAPR500T PO; +PRED5TAB PO; -PSEU30TA PO; +PSEU30TA27 PO
[2018-04-26 00:42] VITALS: BP 173/86
--- NOTE | 2018-04-26 01:20 | NUR ---
US AT BEDSIDE
[2018-04-26 01:26] LABS: BASOPHILS # (AUTO) 0.05 x10^3/uL (0-0.1); BASOPHILS % (AUTO) 1 % (0-1); EOSINOPHILS # (AUTO) 0.52 x10^3/uL (0-0.4); EOSINOPHILS % (AUTO) 7 % (1-7); LYMPHOCYTES # (AUTO) 2.94 x10^3/uL (1-3.4); LYMPHOCYTES % (AUTO) 40 % (22-44); MD NO; MEAN CORPUSCULAR HEMOGLOBIN 31.6 pg (27.0-34.8); MEAN CORPUSCULAR HGB CONC 33.5 g/dL (32.4-35.8); MEAN CORPUSCULAR VOLUME 94.3 fL (80-100); MEAN PLATELET VOLUME 8.4 fL (7.4-10.4); MONOCYTES # (AUTO) 0.53 x10^3/uL (0.2-0.8); MONOCYTES % (AUTO) 7 % (2-9); NEUTROPHILS # (AUTO) 3.41 x10^3/uL (1.8-6.8); NEUTROPHILS % (AUTO) 46 % (42-75); PLATELET COUNT 227 x10^3/uL (130-400); RED BLOOD COUNT 4.34 x10^6/uL (3.82-5.3); RED CELL DISTRIBUTION WIDTH 14.9 % (9.6-15.2)
[2018-04-26 01:35] LABS: ANION GAP 7 mmol/L (5-15); CALCIUM 8.6 mg/dL (8.5-10.1); CHLORIDE 113 mmol/L (98-107); CREATININE 0.89 mg/dL (0.55-1.02)
[2018-04-26 01:39] LABS: CREATINE KINASE, TOTAL 133 U/L (26-192)
--- NOTE | 2018-04-26 02:12 | NUR ---
Patient given discharge instructions and they have confirmed that they understand the instructions. Patient ambulatory with steady gait.
== END 2018-04-26 02:14 | disposition home or self-care (01) ==
LOC: ED 02:08
DX: M79.652 Pain in left thigh (principal); J44.9 Chronic obstructive pulmonary disease, unspecified; I25.2 Old myocardial infarction; K21.9 Gastro-esophageal reflux disease without esophagitis; Z88.2 Allergy status to sulfonamides; Z87.891 Personal history of nicotine dependence; Z88.8 Allergy status to other drugs, medicaments and biological substances
CPT/HCPCS: 36415; 80048; 82550; 83735; 85025; 99284

== ENCOUNTER 2018-04-26 22:45 | Emergency (ER) | payer BC, MEDICARE ==
[~2018-04-26] VITALS: Ht 167.6 cm; Wt 64.3 kg
[2018-04-26 22:48] VITALS: BP 153/63
--- NOTE | 2018-04-26 23:30 | NUR ---
Pt arrives to ed with left cramping shoulder pain. Pt denies truama at this time. Had full workup last night here in our ed but has not improved.
--- NOTE | 2018-04-27 00:42 | NUR ---
Patient/Caregiver given discharge instructions and they have confirmed that they understand the instructions. Patient ambulatory with steady gait.
== END 2018-04-27 00:44 | disposition home or self-care (01) ==
LOC: ED 23:40
DX: M62.838 Other muscle spasm (principal); M19.012 Primary osteoarthritis, left shoulder; J44.9 Chronic obstructive pulmonary disease, unspecified; K21.9 Gastro-esophageal reflux disease without esophagitis; I25.2 Old myocardial infarction; F41.1 Generalized anxiety disorder; Z87.01 Personal history of pneumonia (recurrent); Z87.891 Personal history of nicotine dependence; M19.90 Unspecified osteoarthritis, unspecified site
CPT/HCPCS: 99283

== ENCOUNTER 2019-03-28 13:42 | Emergency (ER) | payer BC ==
[~2019-03-28] VITALS: Ht 167.6 cm; Wt 62.0 kg
[~2019-03-28 13:42] MED LIST changes: +AZIT500T10 PO; -AZIT500T5 PO; -HYDR473S55 PO; +HYDR473S60 PO
[2019-03-28] MEDS ORDERED: SODIUM CHLORIDE FLUSH 10ML SYR IVF ONE (14:00)
[2019-03-28 14:28] LABS: BASOPHILS # (AUTO) 0.03 x10^3/uL (0-0.1); BASOPHILS % (AUTO) 1 % (0-1); EOSINOPHILS # (AUTO) 0.63 x10^3/uL (0-0.4); EOSINOPHILS % (AUTO) 10 % (1-7); LYMPHOCYTES # (AUTO) 2.04 x10^3/uL (1-3.4); LYMPHOCYTES % (AUTO) 32 % (22-44); MD NO; MEAN CORPUSCULAR HEMOGLOBIN 32.2 pg (27.0-34.8); MEAN CORPUSCULAR HGB CONC 32.7 g/dL (32.4-35.8); MEAN CORPUSCULAR VOLUME 98.2 fL (80-100); MEAN PLATELET VOLUME 8.8 fL (7.4-10.4); MONOCYTES # (AUTO) 0.42 x10^3/uL (0.2-0.8); MONOCYTES % (AUTO) 7 % (2-9); NEUTROPHILS # (AUTO) 3.26 x10^3/uL (1.8-6.8); NEUTROPHILS % (AUTO) 51 % (42-75); PLATELET COUNT 225 x10^3/uL (130-400); RED BLOOD COUNT 4.81 x10^6/uL (3.82-5.3); RED CELL DISTRIBUTION WIDTH 14.3 % (9.6-15.2)
[2019-03-28] MEDS ORDERED: ALBUTEROL/IPRATROPIUM 2.5MG/0.5MG, 3 ML NPPB SCH (14:30)
[2019-03-28 14:41] LABS: ALANINE AMINOTRANSFERASE 26 U/L (12-78); ALBUMIN 3.8 g/dL (3.4-5.0); ANION GAP 5 mmol/L (5-15); CHLORIDE 112 mmol/L (98-107); CREATININE 0.95 mg/dL (0.55-1.02)
[2019-03-28] MEDS ORDERED: ALBUTEROL/IPRATROPIUM 2.5MG/0.5MG, 3 ML ONE (14:43)
[2019-03-28 14:45] LABS: ALKALINE PHOSPHATASE 94 U/L (45-117); BILIRUBIN,TOTAL 0.8 mg/dL (0.2-1.0); TOTAL PROTEIN 7.1 g/dL (6.4-8.2); TROPONIN I < 0.015 ng/mL (0.000-0.045)
[2019-03-28 16:03] VITALS: BP 131/49
== END 2019-03-28 16:57 | disposition home or self-care (01) ==
LOC: ED 14:16
DX: J44.1 Chronic obstructive pulmonary disease with (acute) exacerbation (principal); J01.00 Acute maxillary sinusitis, unspecified; I25.2 Old myocardial infarction; M19.90 Unspecified osteoarthritis, unspecified site; K21.9 Gastro-esophageal reflux disease without esophagitis; Z87.891 Personal history of nicotine dependence
CPT/HCPCS: 36415; 71045; 80053; 83605; 84484; 85025; 87040; 93005; 94640; 99284; J7620

== ENCOUNTER 2019-04-19 10:15 | Emergency (ER) | payer BC ==
[~2019-04-19] VITALS: Ht 167.6 cm; Wt 61.1 kg
--- NOTE | 2019-04-19 10:45 | NUR ---
Pt to room 34 from lobby
[2019-04-19] MEDS ORDERED: ALBUTEROL/IPRATROPIUM 2.5MG/0.5MG, 3 ML NPPB ONE (12:00)
[2019-04-19] MEDS ORDERED: SODIUM CHLORIDE FLUSH 10ML SYR IVF ONE (12:00)
--- NOTE | 2019-04-19 12:00 | NUR ---
RECEIVED REPORT FROM ANDREI EDOUARD. ASSUMING CARE AT THIS TIME.
--- NOTE | 2019-04-19 12:04 | NUR ---
PT RESTING COMFORTABLY ON GURNEY. PT SPEAKING IN FULL SENTENCES, NO RESP DISTRESS NOTED. XRAY DONE. LAB AT BEDSIDE. SPOUSE AT BEDSIDE.
[2019-04-19] MEDS ORDERED: ALBUTEROL/IPRATROPIUM 2.5MG/0.5MG, 3 ML ONE (12:12)
[2019-04-19 12:19] LABS: BASOPHILS # (AUTO) 0.09 x10^3/uL (0-0.1); BASOPHILS % (AUTO) 1 % (0-1); EOSINOPHILS # (AUTO) 0.62 x10^3/uL (0-0.4); EOSINOPHILS % (AUTO) 8 % (1-7); LYMPHOCYTES # (AUTO) 1.88 x10^3/uL (1-3.4); LYMPHOCYTES % (AUTO) 24 % (22-44); MD NO; MEAN CORPUSCULAR HEMOGLOBIN 32.2 pg (27.0-34.8); MEAN CORPUSCULAR HGB CONC 33.7 g/dL (32.4-35.8); MEAN CORPUSCULAR VOLUME 95.6 fL (80-100); MEAN PLATELET VOLUME 9.2 fL (7.4-10.4); MONOCYTES # (AUTO) 0.54 x10^3/uL (0.2-0.8); MONOCYTES % (AUTO) 7 % (2-9); NEUTROPHILS # (AUTO) 4.73 x10^3/uL (1.8-6.8); NEUTROPHILS % (AUTO) 60 % (42-75); PLATELET COUNT 201 x10^3/uL (130-400); RED BLOOD COUNT 4.63 x10^6/uL (3.82-5.3); RED CELL DISTRIBUTION WIDTH 14.7 % (9.6-15.2)
[2019-04-19 12:29] LABS: ALANINE AMINOTRANSFERASE 16 U/L (12-78); ALBUMIN 3.5 g/dL (3.4-5.0); ANION GAP 6 mmol/L (5-15); CALCIUM 8.5 mg/dL (8.5-10.1); CHLORIDE 113 mmol/L (98-107); CREATININE 0.94 mg/dL (0.55-1.02)
[2019-04-19] MEDS ORDERED: methylPREDNISolone SOD SUCC 125 MG/2 ML IVPush ONE (12:30)
[2019-04-19 12:31] LABS: ALKALINE PHOSPHATASE 81 U/L (45-117); BILIRUBIN,TOTAL 1.2 mg/dL (0.2-1.0); TOTAL PROTEIN 6.7 g/dL (6.4-8.2)
[2019-04-19] MEDS ORDERED: SODIUM CHLORIDE 0.9%, 500ML IVBOLUS ONE (13:00)
[2019-04-19] MEDS ORDERED: methylPREDNISolone SOD SUCC 125 MG/2 ML ONE (13:04)
--- NOTE | 2019-04-19 13:23 | NUR ---
IV START. MEDS ADMIN PER JUN. PT RESTING COMFORTABLY ON GURNEY. SHANNAN
[2019-04-19 13:53] VITALS: BP 128/58
--- NOTE | 2019-04-19 13:53 | NUR ---
IVF COMPLETE. ALL RESULTS ARE BACK AT THIS TIME. CHART UP FOR RECHECK.
== END 2019-04-19 15:12 | disposition home or self-care (01) ==
LOC: ED 14:30
DX: J44.9 Chronic obstructive pulmonary disease, unspecified (principal); I25.2 Old myocardial infarction
CPT/HCPCS: 36415; 71045; 80053; 84145; 85025; 85379; 93005; 93971; 94640; 96374; 99284; J2930; J7040

== ENCOUNTER → 2019-08-21 | Outpatient (CLI) | payer BC ==
[~2019-08-21] MED LIST changes: +AMLO-150 PO; +FLUT16SP24 NAS; +FURO40TA6 PO; +GUAI200T37 PO; +IPRA3AMP30 HHN; +MONT10TA11 PO; +POTA10TA5 PO
== END | disposition home or self-care (01) ==
LOC: CFH 10:22
PROVIDERS: ATTEND Internal Medicine
DX: M19.012 Primary osteoarthritis, left shoulder (principal); E04.2 Nontoxic multinodular goiter
CPT/HCPCS: 76536

== ENCOUNTER 2019-10-18 14:26 | Emergency (ER) | payer BC ==
[~2019-10-18] VITALS: Ht 170.2 cm; Wt 59.0 kg
--- NOTE | 2019-10-18 14:44 | NUR ---
TASK RN: PT TO ROOM AT THIS TIME. [facility] HELPING PT CHANGE AND ONTO GURNEY
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
[2019-10-18] MEDS ORDERED: ALBUTEROL SULFATE 2.5 MG/3 ML NPPB ONE (15:00)
[2019-10-18] MEDS ORDERED: ALBUTEROL SULFATE 2.5 MG/3 ML ONE (15:03)
--- NOTE | 2019-10-18 15:13 | NUR ---
TASK RN: PATIENT MEDICATED PER EMAR, TOLERATED WELL.
[2019-10-18 15:16] VITALS: BP 110/57
== END 2019-10-18 16:37 | disposition home or self-care (01) ==
LOC: ED 16:26
DX: J44.1 Chronic obstructive pulmonary disease with (acute) exacerbation (principal); R05 Cough; R06.02 Shortness of breath; R00.0 Tachycardia, unspecified; I25.2 Old myocardial infarction; K21.9 Gastro-esophageal reflux disease without esophagitis; Z87.891 Personal history of nicotine dependence
CPT/HCPCS: 71045; 93005; 94640; 99283; J7512; J7613